=== PATIENT | female | born 1980 | race Caucasian/White ===

== ENCOUNTER → 2023-06-06 10:35 | Outpatient (BNVA) | payer MEDICAID, SELFPAY | PROVIDERS: Visit Provider Nurse Practitioner | DX: R07.9 Chest pain, unspecified (principal); R00.2 Palpitations | CPT/HCPCS: 93005 ==

== ENCOUNTER → 2023-06-13 09:50 | Outpatient (BNVA) | payer MEDICAID, SELFPAY | PROVIDERS: PCP Nurse Practitioner; Referring Provider Nurse Practitioner; Visit Provider Nurse Practitioner | DX: E11.9 Type 2 diabetes mellitus without complications (principal); R53.83 Other fatigue | CPT/HCPCS: 80053; 80061; 82150; 83001; 83036; 83690 ==

== ENCOUNTER 2023-12-05 06:00 | Outpatient (CLI) | payer MEDICAID, SELFPAY | END 2023-12-05 06:01 | disposition home or self-care (01) | LOC: RAD 12-23 11:05 | PROVIDERS: PCP Nurse Practitioner; Visit Provider Psychiatry & Neurology Neurology | DX: G45.9 Transient cerebral ischemic attack, unspecified (principal); R55 Syncope and collapse; E53.8 Deficiency of other specified B group vitamins | CPT/HCPCS: 36415; 82306; 82607; 82746; 83090; 83735; 83921; 85025 ==